=== PATIENT | male | born 1950 | race Caucasian/White ===

== ENCOUNTER 2017-02-17 10:00 | Day surgery (SDC) | payer MEDICARE, MEDICAID ==
[~2017-02-17] VITALS: Ht 172.7 cm; Wt 65.0 kg
[~2017-02-17 10:00] MED LIST: Sodium Chloride LOK Flush 10 mL Syringe IV PRN; VALA500T2 PO; fentaNYL-PF 50 mCg/mL 2 mL Inj IVPUSH PRN
[2017-02-17 11:50] VITALS: BP 134/92; PULSE 76; RESP 14; O2SAT 96
[2017-02-17] MEDS: 0.9% Sodium Chloride 1,000 ML IV SCH ×2 (13:14→13:20)
[2017-02-17 13:37] VITALS: BP 96/130; PULSE 65; RESP 15; O2SAT 96
--- NOTE | 2017-02-17 13:40 | PCM.ENDEGD ---
EGD Date of Service: Feb 17, 2017 Physician Sajan Arthur MD Pre Procedure Diagnosis: Reflux Post Procedure Dx & Findings: Esophagitis Schatzki's ring gastritis Procedure Esophagogastroduodenoscopy PROCEDURE IN DETAIL: After proper sedation, Olympus video endoscope was inserted into patient's mouth and esophagus was successfully intubated. Scope introduced esophagus. Esophagus showed normal shiny whitish mucosa consistent with squamous cell component. Z line was not intact at 39 cm from the incisors. There was a nonobstructing Schatzki's ring with LA grade B inflammation. Biopsies obtained at the Schatzki's ring and the esophagitis. Scope further advanced to the stomach. Proximal stomach showed patchy redness consistent with gastritis however the distal stomach showed normal shiny mucosa with normal appearing rugae folds without any ulcer mass erosion. Cardia fundus body antrum pylorus were all visualized. Retroflexion was done. Stomach was easily inflated and deflatable using air. Scope further events to the distal duodenum. Duodenum revealed normal villous structures with normal appearing folds without any mass ulcer erosion. Impression LA grade B esophagitis status post biopsy Nonobstructing Schatzki's ring status post biopsy; biopsies are placed in the same bottle Gastritis s/p biopsies Recommendation: Prilosec 20 mg once a day Follow with Dr. Lorenzo in the GI clinic Presedation Assessment Risks and Benefits Informed consent was obtained from the patient after all risks and benefits including but not limited to drug reaction, infection, pain, bleeding, perforation, as well as alternatives were discussed. Patient monitoring Continuous pulse oximetry, cardiac monitoring, blood pressure monitoring, IV access, and oxygen at 2L per nasal cannula. Periprocedural Fentanyl: Fentanyl 75mcg Incrementally Midazolam: Midazolam 4mg Incrementally Complications There were no periprocedural complications identified. Post Procedure Plan Post Procedure Recommendations 1. Restrict activities today. 2. Resume normal activities in the morning. 3. Resume medications. 4. GERD behavioral modification: - Avoid fatty, acidic, spicy, large meals - Do not lie down after meals - Do not eat or drink anything for at least 2 1/2 hours before going to bed at night - Discontinue tobacco and alcohol - Decrease or avoid caffeine - Avoid chocolate and mints - Decrease weight - Avoid aspirin and non steroidal anti-inflammatory agents (NSAID) such as Aleve, Advil, Mobic, Naproxen, Ibuprofen, etc 5. Add proton pump inhibitor. Take 30 minutes before 1st meal of the day. 6. Patient informed of normal post procedure side effects as bloating, drowsiness, blood streaking in the stool 7. If gastric biopsy reveal H.pylori, continue with appropriate treatment 8. If small bowel biopsy reveals celiac, continue with appropriate treatment 9. Please don't hesitate to call me with any questions Sajan Arthur MD Feb 17, 2017 13:40
--- NOTE | 2017-02-17 13:42 | PCM.ENDCOL ---
Colonoscopy Date of Service: Feb 17, 2017 Physician Sajan Arthur MD Pre Procedure Diagnosis: Screening Post Procedure Dx & Findings: Polyp hemorrhoids and diverticula Procedure Colonoscopy PROCEDURE IN DETAIL: Prep adequate Withdrawal time 12 minutes After unremarkable rectal examination the Olympus video colonoscope was inserted patient's anal canal and was advanced to cecum. Landmarks were identified including the ileocecal valve and appendiceal orifice. Scope was withdrawn systematically. Visualized colonic mucosa showed healthy shiny mucosa with normal healthy-appearing vasculature. In the ascending colon, there were 2 polyps. They were both 3 mm in size. These were both removed completely using cold snare. In the transverse colon, there was a 5 mm polyp which was removed completely using cold snare. In the sigmoid colon there are several small to medium sized diverticuli. In the rectum retroflexion was done which showed hemorrhoids. Anal canal was inspected carefully on the way out and hemorrhoids noted. Grade 4 hemorrhoids noted. Impression Polyps 3 status post complete removal Diverticuli Hemorrhoids Recommendation Repeat colonoscopy 3 years Diverticular diet Surgical evaluation for hemorrhoids. Follow-up with Dr. Lorenzo in the GI clinic in 1 month this is to discuss the endoscopy findings and to recommend the patient for surgical evaluation. Presedation Assessment Risks and Benefits Informed consent was obtained from the patient after all risks and benefits including but not limited to drug reaction, infection, pain, bleeding, perforation, as well as alternatives were discussed. Patient monitoring Continuous pulse oximetry, cardiac monitoring, blood pressure monitoring, IV access, and oxygen at 2L per nasal cannula. Complications There were no periprocedural complications identified. Post Procedure Plan Post Procedure Recommendations 1. Restrict activities today. 2. Resume normal activities in the morning. 3. Resume medications. 4. Patient informed of normal post procedure side effects as bloating, drowsiness, blood streaking in the stool. 5. average risk CRCS. If colon polyps come back as: -Hyperplastic- can repeat colonoscopy in 10 years -Tubular adenoma- repeat colonoscopy in 5 years -Tubulovillous/villous adenoma- repeat colonoscopy in 3 years -If any dysplasia- return to clinic as soon as possible 6. Please don't hesitate to call me with any questions. Sajan Arthur MD Feb 17, 2017 13:42
[2017-02-17 13:45] VITALS: BP 128/85; PULSE 64; RESP 15; O2SAT 98
[2017-02-17 13:55] VITALS: BP 131/82; PULSE 61; RESP 15; O2SAT 99
== END 2017-02-17 23:59 | disposition home or self-care (01) ==
LOC: END 10:00
PROVIDERS: ATTEND Internal Medicine
DX: Z12.11 Encounter for screening for malignant neoplasm of colon (principal); D12.2 Benign neoplasm of ascending colon; D12.3 Benign neoplasm of transverse colon; K64.9 Unspecified hemorrhoids; K57.30 Diverticulosis of large intestine without perforation or abscess without bleeding; K20.9 Esophagitis, unspecified; K21.9 Gastro-esophageal reflux disease without esophagitis; K22.2 Esophageal obstruction; B18.2 Chronic viral hepatitis C; F19.21 Other psychoactive substance dependence, in remission; F12.90 Cannabis use, unspecified, uncomplicated; A60.00 Herpesviral infection of urogenital system, unspecified; Z20.5 Contact with and (suspected) exposure to viral hepatitis; Z79.84 Long term (current) use of oral hypoglycemic drugs; Z79.82 Long term (current) use of aspirin
CPT/HCPCS: 43239; 45385; 88305; 99153; G0500; J2250; J3010; J7030